=== PATIENT | male | born 1950 | race Caucasian/White ===

== ENCOUNTER 2021-04-30 06:37 | Day surgery (SDC) | payer MEDICARE, BC ==
[2021-04-22 15:49] LABS: ALBUMIN/GLOBULIN RATIO 1.1 (1.1-1.5); ALKALINE PHOSPHATASE 72 IU/L (46-116); BASOPHILS # (AUTO) 0.1 X10'3 (0-0.2); BASOPHILS % (AUTO) 0.7 % (0-1); BLOOD UREA NITROGEN 16 MG/DL (7-18); BUN/CREATININE RATIO 16.7 (5.4-32.0); CALCIUM 8.8 MG/DL (8.5-10.1); CHLORIDE 109 MMOL/L (99-107); CREATININE 0.96 MG/DL (0.60-1.10); EOSINOPHILS # (AUTO) 0.1 X10'3 (0-0.9); EOSINOPHILS % (AUTO) 0.8 % (0-6); LYMPHOCYTES % (AUTO) 12.2 % (21-51); MEAN CORPUSCULAR HEMOGLOBIN 31.8 PG (27.0-31.0); MEAN CORPUSCULAR HGB CONC 34.6 g/dL (33.0-36.5); MEAN CORPUSCULAR VOLUME 91.7 FL (78-98); MEAN PLATELET VOLUME 8.3 FL (7.4-10.4); MONOCYTES # (AUTO) 0.6 X10'3 (0-0.9); MONOCYTES % (AUTO) 7.2 % (2-12); NEUTROPHILS # (AUTO) 6.2 X10'3 (1.8-7.7); NEUTROPHILS % (AUTO) 79.1 % (42-75); PRE OP ALT 43 U/L (30-65); PRE OP ANION GAP 13 (8-16); PRE OP AST 18 U/L (10-37); PRE OP BILIRUB, TOTAL 0.3 MG/DL (0.0-1.0); PRE OP GLUCOSE 146 MG/DL (70-104); PRE OP HEMATOCRIT 41.1 % (42.0-52.0); PRE OP HEMOGLOBIN 14.2 g/dL (14.0-17.9); PRE OP PLATELET COUNT 205 X10'3 (140-440); PRE OP POTASSIUM 3.8 MMOL/L (3.4-5.1); PRE OP SODIUM 147 MMOL/L (135-145); RED BLOOD COUNT 4.48 X10'6 (4.70-6.10); RED CELL DISTRIBUTION WIDTH 13.7 % (11.5-14.5); TOTAL PROTEIN 7.5 G/DL (6.4-8.2); eGFR 77 ML/MIN
[2021-04-22 17:21] LABS: CLARITY,URINE SLIGHTLY CLOUDY (Clear); COLOR,URINE DARK YELLOW (Yellow); GLUCOSE, URINE NEGATIVE (Neg); KETONES,URINE TRACE mg/dl (Neg); NITRITES, URINE NEGATIVE (Neg); OCCULT BLOOD,URINE NEGATIVE (Neg); PROTEIN,URINE NEGATIVE (Neg); UA COLLECTION TYPE CLN CATCH MIDSTREAM
[2021-04-22 17:22] LABS: LEUKOCYTE ESTERASE ,URINE NEGATIVE (Neg); UROBILINOGEN,URINE 0.2 E.U/dL (0.2-1.0)
[2021-04-22 17:24] LABS: BACTERIA,URINE NONE SEEN /HPF (Neg); CAL OXALATE CRYSTALS 4+ /HPF (NEGATIVE); MUCUS STRANDS MANY /LPF (Neg); RBC,URINE NONE SEEN /HPF (0-2); SQUAMOUS EPITHELIAL CELL,UR FEW /LPF (FEW); WBC,URINE 0-4 /HPF (0-4)
[~2021-04-30] VITALS: Ht 180.3 cm; Wt 111.3 kg
[2021-04-30] VITALS (8 sets, daily range): BP systolic 133–152; BP diastolic 66–75
[~2021-04-30 06:37] MED LIST: ALLO100T PO; ASPI-1397 PO; FLO0.4C PO; LISI10TA27 PO; METF-1203 PO; NAPR-996 PO; SIMV-45 PO; cefazolin/dext.iso 2gm/100ml IV ONE; famotidine 20mg tablet PO ONE; ringers solution, lacted 1,000 ML IV SCH
[2021-04-30] MEDS ORDERED: BUPIVAcaine/PF 2.5 mg/ml (0.25%) 30ml vial ONE (09:10)
[2021-04-30] MEDS ORDERED: bacitracin 15gm ointment TP ONE (09:10)
[2021-04-30] MEDS ORDERED: sevoflurane 250ml liquid IH ONE (11:03)
[2021-04-30] MEDS ORDERED: fentaNYL/PF 50MCG/1 ML 2ML syringe ONE ×2 (11:04→13:00)
[2021-04-30] MEDS ORDERED: midazolam 1 mg/ML 2ml injection ONE (11:04)
[2021-04-30] MEDS ORDERED: morphine 2 MG/ML inj. syringe IV PRN (11:50)
[2021-04-30] MEDS ORDERED: ROPIVAcaine 0.2%/PF PUMP/bolus 545 ML POPLITEAL SCH (11:50)
[2021-04-30] MEDS ORDERED: ROPIVAcaine 0.2% (10 MG/5 ML) BOLUS INJECTION POPLITEAL PRN (11:50)
[2021-04-30] MEDS ORDERED: HYDROmorphone/PF 0.2 MG/ML SYRINGE IV PRN ×2 (11:50)
[2021-04-30] MEDS ORDERED: ondansetron/PF 4mg/2ml inj IV PRN (11:50)
[2021-04-30] MEDS ORDERED: ringers solution, lacted 1,000 ML IV SCH (11:50)
[2021-04-30] MEDS ORDERED: LIDOcaine 2% (20mg/ml) 5ml vial ONE (12:13)
[2021-04-30] MEDS ORDERED: glycopyrrolate 0.2mg/ml inj ONE (12:13)
[2021-04-30] MEDS ORDERED: ROPIVAcaine 0.5% (5mg/ml) 30ml vial ONE (12:13)
[2021-04-30] MEDS ORDERED: acetaminophen 1,000mg/100ml IV 100 ML IV ONE (12:13)
[2021-04-30] MEDS ORDERED: ondansetron/PF 4mg/2ml inj ONE (12:13)
[2021-04-30] MEDS ORDERED: propofol inj 20 ML IV ONE (12:13)
[2021-04-30] MEDS ORDERED: neostigmine methylsulfate 1 MG/ML 10ml vial ONE (12:13)
[2021-04-30] MEDS ORDERED: rocuronium 10mg/ml inj IV ONE (12:13)
--- NOTE | 2021-04-30 13:08 | NUR ---
Received from OR via , accompanied by Anesthesiologist DR AUSTIN and report given by Anesthesiolgist. AWAKENS TO VOICE. VITALS STABLE. DRESSING DI. JOSE PAIN. SURGICAL BOOT ON.
--- NOTE | 2021-04-30 14:38 | NUR ---
AWAKE AND ORIENTED. VITALS STABLE. DRESSING DI. JOSE PAIN. HOME WITH HIS AT THIS TIME.
== END 2021-04-30 14:38 | disposition home or self-care (01) ==
LOC: PAS 06:37
PROVIDERS: ATTEND Podiatrist Foot & Ankle Surgery
DX: M25.872 Other specified joint disorders, left ankle and foot (principal); M19.072 Primary osteoarthritis, left ankle and foot; G47.33 Obstructive sleep apnea (adult) (pediatric); I10 Essential (primary) hypertension; E11.9 Type 2 diabetes mellitus without complications; M19.90 Unspecified osteoarthritis, unspecified site; G89.18 Other acute postprocedural pain; E66.9 Obesity, unspecified; Z68.34 Body mass index [BMI] 34.0-34.9, adult; Z85.46 Personal history of malignant neoplasm of prostate; Z79.899 Other long term (current) drug therapy; Z79.82 Long term (current) use of aspirin; Z96.652 Presence of left artificial knee joint; Z98.1 Arthrodesis status; Z20.822 Contact with and (suspected) exposure to COVID-19; Z72.89 Other problems related to lifestyle
CPT/HCPCS: 27703; 36415; 64446; 64447; 73600; 76000; 76937; 76942; 80053; 81001; 82948; 85025; 93005; A6223; C1776; J0131; J2001; J2250; J2405; J2704; J2710; J2795; J3010; J3490; J7120; U0003; U0005; Z7506; Z7508; Z7512; A4618; A6253; A6449; A7000